=== PATIENT | male | born 1975 | race Two or more races ===

== ENCOUNTER 2017-12-26 08:04 | Emergency (ER) | payer MEDICAID ==
[~2017-12-26] VITALS: Ht 172.7 cm; Wt 77.1 kg
--- NOTE | 2017-12-26 08:20 | NUR ---
AAOX3, CAME TO ER C/O "I FEEL VERY UNSTABLE, I'M PARANOID AND DEPRESSED."ADMITS DRANK ALCOHOL THIS AM, SMOKED MARIJUANA LAST NIGHT, USED IV METH 24 HRS AGO. RR IS EVEN AND UNLABORED WITH NAD NOTED. SKIN IS WARM AND DRY. DR CASTAÑEDA AT BS FOR EVAL.
[2017-12-26 08:51] LABS: APPEARANCE,URINE CLEAR (CLEAR); BILIRUBIN,URINE NEGATIVE (NEGATIVE); BLOOD, URINE NEGATIVE Ery/uL (NEGATIVE); COLOR,URINE YELLOW (YELLOW); KETONES,URINE NEGATIVE (NEGATIVE); LEUKOCYTE ESTERASE ,URINE NEGATIVE (NEGATIVE); NITRITE, URINE NEGATIVE (NEGATIVE); PH,URINE 5.5 (5.0-8.0); PROTEIN,URINE NEGATIVE (NEGATIVE); UGLUCOSE NEGATIVE (NEGATIVE); UROBILINOGEN,URINE 0.2 EU/dL (0.2)
[2017-12-26 09:10] LABS: BASOPHILS # (AUTO) 0.1 /CMM (0.0-0.2); BASOPHILS % (AUTO) 0.6 % (0.0-2.0); EOSINOPHILS % (AUTO) 0.6 % (0.0-6.0); HEMATOCRIT 38 % (39-51); HEMOGLOBIN 13.4 g/dL (13.5-17.5); LYMPHOCYTES # (AUTO) 1.9 /CMM (0.8-4.8); LYMPHOCYTES % (AUTO) 20.2 % (20.0-44.0); MEAN CORPUSCULAR HEMOGLOBIN 31 PG (26.0-33.0); MEAN CORPUSCULAR HGB CONC 36 g/dl (31.0-36.0); MEAN CORPUSCULAR VOLUME 87 fL (80-96); MONOCYTES % (AUTO) 11.1 % (2.0-12.0); NEUTROPHILS # (AUTO) 6.2 /CMM (1.8-8.9); NEUTROPHILS % (AUTO) 67.5 % (43.0-81.0); PLATELET COUNT (AUTO) 300 /CMM (150-450); RDW COEFFICIENT OF VARIATION 13.7 (11.5-15.0); RED BLOOD CELL COUNT(AUTO) 4.29 MIL/uL (4.5-6.0); WHITE BLOOD COUNT (AUTO) 9.3 K/uL (4.3-11.0)
[2017-12-26 09:27] LABS: CALCIUM, SERUM 9.3 mg/dL (8.5-10.1); CREATININE 0.9 mg/dL (0.6-1.3); POTASSIUM 3.5 mmol/L (3.5-5.1)
[2017-12-26 09:33] LABS: ALBUMIN 3.9 g/dL (3.4-5.0); BILIRUBIN,DIRECT 0.1 mg/dL (0.0-0.2); BILIRUBIN,TOTAL 0.3 mg/dL (0.2-1.0); TOTAL PROTEIN, SERUM 8.2 g/dL (6.4-8.2)
--- NOTE | 2017-12-26 09:46 | NUR ---
[facility] GIL WAS CALLED AND SAID SHE WOULD BE HERE SOON SHE COULD
[2017-12-26] MEDS ORDERED: ACETAMINOPHEN ES 500 MG TABLET ONE (11:29)
[2017-12-26] MEDS ORDERED: ACETAMINOPHEN ES 500 MG TABLET PO ONE (11:30)
--- NOTE | 2017-12-26 11:32 | NUR ---
Patient discharged to home in stable condition. Written and verbal after care instructions given. Patient verbalizes understanding of instruction.
[2017-12-26 11:33] VITALS: BP 141/74
== END 2017-12-26 11:33 | disposition home or self-care (01) ==
LOC: ER 08:08
DX: F32.9 Major depressive disorder, single episode, unspecified (principal); F15.10 Other stimulant abuse, uncomplicated; F13.10 Sedative, hypnotic or anxiolytic abuse, uncomplicated; F19.10 Other psychoactive substance abuse, uncomplicated; F10.151 Alcohol abuse with alcohol-induced psychotic disorder with hallucinations; F41.9 Anxiety disorder, unspecified; F20.0 Paranoid schizophrenia; F12.10 Cannabis abuse, uncomplicated; Y90.2 Blood alcohol level of 40-59 mg/100 ml; Z59.0 Homelessness
CPT/HCPCS: 36415; 80048-TC; 80076-TC; 80305; 81000-TC; 85025-TC; A4606; G0480; Z7610

== ENCOUNTER 2018-03-12 21:15 | Emergency (ER) | payer MEDICAID ==
[~2018-03-12] VITALS: Ht 175.3 cm; Wt 72.6 kg
--- NOTE | 2018-03-12 22:30 | NUR ---
BIBRA FROM STREET ETOH. NO ACUTE RESP DISTRESS. AFEBRILE. VSS. PT IS RESTLESS BUT COOPERATIVE.DR. ALCARAZ AT BEDSIDE SPOKE AND ASSESSED THE PATIENT WILL MONITOR CLOSELY,
[2018-03-12 22:50] LABS: BASOPHILS % (AUTO) 0.7 % (0.0-2.0); HEMATOCRIT 39 % (39-51); LYMPHOCYTES # (AUTO) 2.8 /CMM (0.8-4.8); LYMPHOCYTES % (AUTO) 58.7 % (20.0-44.0); MEAN CORPUSCULAR HGB CONC 33 g/dl (31.0-36.0); MEAN CORPUSCULAR VOLUME 89 fL (80-96); MONOCYTES # (AUTO) 0.4 /CMM (0.1-1.30); MONOCYTES % (AUTO) 8.2 % (2.0-12.0); NEUTROPHILS # (AUTO) 1.3 /CMM (1.8-8.9); NEUTROPHILS % (AUTO) 28.4 % (43.0-81.0); PLATELET COUNT (AUTO) 279 /CMM (150-450); RED BLOOD CELL COUNT(AUTO) 4.37 MIL/uL (4.5-6.0); WHITE BLOOD COUNT (AUTO) 4.7 K/uL (4.3-11.0)
[2018-03-12 23:00] LABS: CALCIUM, SERUM 8.4 mg/dL (8.5-10.1); CREATININE 0.9 mg/dL (0.6-1.3); POTASSIUM 3.8 mmol/L (3.5-5.1)
[2018-03-12 23:06] LABS: ALBUMIN 3.8 g/dL (3.4-5.0); BILIRUBIN,DIRECT 0.1 mg/dL (0.0-0.2); BILIRUBIN,TOTAL 0.4 mg/dL (0.2-1.0); TOTAL PROTEIN, SERUM 7.7 g/dL (6.4-8.2)
[2018-03-12 23:07] LABS: SALICYLATE 0.7 mg/dL (2.8-20.0)
--- NOTE | 2018-03-13 03:03 | NUR ---
PATIENT ASLEEP AT THIS TIME. NO SIGNIFICNAT CHANGES PRESENT. VSS
--- NOTE | 2018-03-13 05:36 | NUR ---
ALCOHOL LEVEL DRAWN BY LAB AT BEDSIDE.
[2018-03-13] MEDS ORDERED: LORAZEPAM 1 MG TABLET PO ONE (07:00)
[2018-03-13] MEDS ORDERED: LORAZEPAM 1 MG TABLET ONE (07:03)
--- NOTE | 2018-03-13 07:06 | NUR ---
ATIVAN PO GIVEN ORDERED. TOLERATED WELL.
--- NOTE | 2018-03-13 08:00 | NUR ---
PT NOTED AAOX4. AMBULATORY WITH STEADY GAIT. DR. HILL AT BS. PT DENIES SI/HI AT THIS TIME.
--- NOTE | 2018-03-13 08:06 | NUR ---
Pt accepted to [facility] by Dr. Lozoya
--- NOTE | 2018-03-13 08:21 | NUR ---
Patient discharged to home in stable condition. Written and verbal after care instructions given. Patient verbalizes understanding of instruction. Per pt he will just [facility].
[2018-03-13 08:23] VITALS: BP 125/69
== END 2018-03-13 08:25 | disposition home or self-care (01) ==
LOC: ER 21:16
DX: F32.9 Major depressive disorder, single episode, unspecified (principal); F19.10 Other psychoactive substance abuse, uncomplicated; F10.129 Alcohol abuse with intoxication, unspecified; F20.9 Schizophrenia, unspecified; F41.9 Anxiety disorder, unspecified; F12.10 Cannabis abuse, uncomplicated; F15.10 Other stimulant abuse, uncomplicated; Z59.0 Homelessness; Y90.7 Blood alcohol level of 200-239 mg/100 ml
CPT/HCPCS: 36415 ×2; 80048; 80076; 80305; 80329; 85025; 99285; G0480 ×4; A4606; Z7610

== ENCOUNTER 2018-03-13 16:56 | Emergency (ER) | payer MEDICAID ==
[~2018-03-13] VITALS: Ht 175.3 cm; Wt 79.4 kg
--- NOTE | 2018-03-13 17:03 | NUR ---
the patient was [facility], ETOH- found sleeping in the car pusher lot.
--- NOTE | 2018-03-13 17:04 | NUR ---
admits to have been drinking alcohol.
--- NOTE | 2018-03-13 17:23 | NUR ---
Patient eloped from facility. ER MD notified.
[2018-03-13 17:24] VITALS: BP 123/70
== END 2018-03-13 17:25 | disposition home or self-care (01) ==
LOC: ER 16:58
DX: F10.129 Alcohol abuse with intoxication, unspecified (principal); F32.9 Major depressive disorder, single episode, unspecified; F41.9 Anxiety disorder, unspecified; F20.9 Schizophrenia, unspecified; F12.10 Cannabis abuse, uncomplicated; F15.10 Other stimulant abuse, uncomplicated; Y90.9 Presence of alcohol in blood, level not specified; Z59.0 Homelessness
CPT/HCPCS: 99283; A4606; Z7610